=== PATIENT | female | born 1960 | race Caucasian/White ===

== ENCOUNTER 2020-11-28 17:43 | Outpatient (CLI) | payer BC, SELFPAY ==
--- NOTE | 2020-11-28 18:42 | XR_ITS ---
WS: [id number] LUMBAR SPINE: 3 VIEWS TECHNIQUE: AP, lateral and L5-S1 spot. HISTORY: Lumbar and pelvic pain after fall from stairs. COMPARISON: None available. Lumbar vertebra are normally aligned. Mild facet joint arthritis L4-5 and L5-S1. No loss of disc space or vertebral body height. SI joints are symmetric bilaterally. No soft tissue abnormalities. Very minimal calcifications noted within the abdominal aorta. XR/XR lumbar spine 2-3V* [id number] IMPRESSION: 1. No fracture. 2. Mild facet joint arthritis L4-5 and L5-S1.
--- NOTE | 2020-11-28 18:42 | XR_ITS ---
WS: [id number] PELVIS: 3 VIEWS. HISTORY: Lumbar, pelvis pain after fall. COMPARISON: None available. Bones and soft tissues of the pelvis are intact. No fracture or dislocation. XR/XR pelvis min 3V [id number] IMPRESSION: Negative pelvis. No pelvic fractures are identified. If pain continues consider follow-up with C T evaluation to exclude occult fracture.
== END 2020-11-28 17:44 | disposition home or self-care (01) ==
PROVIDERS: PCP Family Medicine; Visit Provider Family Medicine
DX: R10.2 Pelvic and perineal pain (principal); M54.5 Low back pain; M47.816 Spondylosis without myelopathy or radiculopathy, lumbar region; M47.817 Spondylosis without myelopathy or radiculopathy, lumbosacral region; W10.8XXA Fall (on) (from) other stairs and steps, initial encounter
CPT/HCPCS: 72100; 72190

== ENCOUNTER 2020-11-30 06:00 | Outpatient (CLI) | payer BC, SELFPAY | END 2020-11-30 06:01 | disposition home or self-care (01) | LOC: LAB 07-27 15:17 | PROVIDERS: PCP Family Medicine; Visit Provider Family Medicine | DX: E04.2 Nontoxic multinodular goiter (principal); H04.123 Dry eye syndrome of bilateral lacrimal glands; Z76.89 Persons encountering health services in other specified circumstances; K76.0 Fatty (change of) liver, not elsewhere classified; I10 Essential (primary) hypertension | CPT/HCPCS: 80053; 80061; 84443; 85025; 85651 ==

== ENCOUNTER → 2020-12-08 16:25 | Outpatient (BNVA) | payer BC, SELFPAY | PROVIDERS: PCP Family Medicine; Visit Provider Family Medicine | DX: K76.0 Fatty (change of) liver, not elsewhere classified (principal) | CPT/HCPCS: 80053; 80061; 85025 ==

== ENCOUNTER 2021-01-23 10:47 | Outpatient (CLI) | payer BC, SELFPAY ==
--- NOTE | 2021-01-23 11:00 | US_ITS ---
WS: [id number] THYROID ULTRASOUND HISTORY: Multiple thyroid nodules COMPARISON: None available. Right lobe: 2.0 cm x 1.6 cm x 4.4 cm (w x ap x l). Volume: 7.1 cm3. Normal-appearing thyroid with a few small, subcentimeter colloid cysts. No solid mass. No increased v ascularity. Normal cervical chain lymph nodes. Left lobe: 1.3 cm x 1.1 cm x 4.2 cm (w x ap x l). Volume: 3.1 cm3. Normal size gland with a few small colloid nodules. Normal cervical chain lymph nodes. Isthmus: 0.5 cm. US/US thyroid [id number] IMPRESSION: 1. No solid thyroid mass. 2. Small thyroid colloid nodules.
== END 2021-01-23 10:48 | disposition home or self-care (01) ==
LOC: US 10:48
PROVIDERS: PCP Family Medicine; Visit Provider Family Medicine
DX: E04.2 Nontoxic multinodular goiter (principal)
CPT/HCPCS: 76536

== ENCOUNTER → 2021-02-18 13:31 | Outpatient (BNVA) | payer BC, SELFPAY | PROVIDERS: PCP Family Medicine; Visit Provider Nurse Practitioner | DX: Z20.822 Contact with and (suspected) exposure to COVID-19 (principal) | CPT/HCPCS: 87635 ==

== ENCOUNTER 2021-04-13 11:54 | Outpatient (CLI) | payer BC, SELFPAY ==
--- NOTE | 2021-04-13 12:00 | MM_ITS ---
WS: [id number] BILATERAL DIGITAL SCREENING MAMMOGRAPHY WITH CAD CLINICAL INFORMATION: screening exam HISTORY: Screening mammogram. No current complaints. COMPARISON: November 04, 2019 TECHNIQUE: Bilateral CC and MLO views. FINDINGS: Scattered fibroglandular densities bilaterally. Lucent centered calcification LEFT breast. No suspici ous focal mass, asymmetry, calcifications, or architectural distortion. No evidence of malignancy. MM/[place] [id number] IMPRESSION: BI-RADS: 2-Benign FOLLOW UP: 1 Year Follow-up Recommend return to annual screening mammography.
== END 2021-04-13 11:55 | disposition home or self-care (01) ==
LOC: RADSHAW 11:59
PROVIDERS: PCP Family Medicine; Visit Provider Family Medicine
DX: Z12.31 Encounter for screening mammogram for malignant neoplasm of breast (principal)
CPT/HCPCS: 77067